=== PATIENT | female | born 1995 | race Caucasian/White ===

== ENCOUNTER → 2023-12-29 | Outpatient (CLI) | payer OTHER | LOC: M RAD 07:25 | PROVIDERS: ATTEND Obstetrics & Gynecology Reproductive Endocrinology | DX: Z34.91 Encounter for supervision of normal pregnancy, unspecified, first trimester (principal); Z31.7 Encounter for procreative management and counseling for gestational carrier ==

== ENCOUNTER → 2024-01-11 | Outpatient (CLI) | payer OTHER ==
[2024-01-11 15:29] LABS: HEMATOCRIT 39.9 % (36.0-47.0); HEMOGLOBIN 12.9 g/dl (12.0-15.5); MEAN CORPUSCULAR HEMOGLOBIN 26.3 pg (27.0-33.0); MEAN CORPUSCULAR HGB CONC 32.3 g/dl (32.0-36.5); MEAN CORPUSCULAR VOLUME 81.4 fl (80.0-96.0); PLATELET COUNT, AUTOMATED 270 10^3/uL (150-450); WHITE BLOOD COUNT 8.6 10^3/uL (4.0-10.0)
[2024-01-11 16:24] LABS: HIV 1&2 SCREEN NEGATIVE (NEGATIVE)
[2024-01-11 16:32] LABS: HEPATITIS C VIRUS ABY INDEX < 0.02 INDEX (<0.8)
[2024-01-11 16:48] LABS: GC DNA AMPLIFICATION NEGATIVE (NEGATIVE)
== END ==
LOC: M PLALAB 14:21
PROVIDERS: ATTEND Nurse Practitioner Women's Health
DX: Z34.80 Encounter for supervision of other normal pregnancy, unspecified trimester (principal)

== ENCOUNTER → 2024-02-08 | Outpatient (REF) | payer OTHER | LOC: M PLALAB 09:25 | PROVIDERS: ATTEND Obstetrics & Gynecology | DX: R82.90 Unspecified abnormal findings in urine (principal) ==

== ENCOUNTER → 2024-03-07 | Outpatient (REF) | payer OTHER | LOC: M SFHCWAGY 14:58 | PROVIDERS: ATTEND Obstetrics & Gynecology | DX: Z34.82 Encounter for supervision of other normal pregnancy, second trimester (principal) ==

== ENCOUNTER → 2024-04-01 | Outpatient (CLI) | payer OTHER | LOC: M RAD 13:18 | PROVIDERS: ATTEND Obstetrics & Gynecology | DX: Z34.82 Encounter for supervision of other normal pregnancy, second trimester (principal); Z3A.21 21 weeks gestation of pregnancy ==

== ENCOUNTER → 2024-05-03 | Outpatient (CLI) | payer OTHER ==
[2024-05-03 15:26] LABS: HEMATOCRIT 34.5 % (36.0-47.0); HEMOGLOBIN 10.4 g/dl (12.0-15.5); MEAN CORPUSCULAR HEMOGLOBIN 24.7 pg (27.0-33.0); MEAN CORPUSCULAR HGB CONC 30.1 g/dl (32.0-36.5); MEAN CORPUSCULAR VOLUME 81.9 fl (80.0-96.0); PLATELET COUNT, AUTOMATED 270 10^3/uL (150-450); RED BLOOD COUNT 4.21 10^6/uL (4.00-5.40); WHITE BLOOD COUNT 9.4 10^3/uL (4.0-10.0)
[2024-05-03 15:30] LABS: GLUCOSE CHALLENGE TEST 1 HOUR 147 MG/DL (LESS THAN 140)
[2024-05-03 15:57] LABS: HIV 1&2 SCREEN NEGATIVE (NEGATIVE)
[2024-05-03 16:05] LABS: HEPATITIS C VIRUS ABY INDEX 0.02 INDEX (<0.8)
[2024-05-03 19:31] LABS: GC DNA AMPLIFICATION NEGATIVE (NEGATIVE)
== END ==
LOC: M PLALAB 11:23
PROVIDERS: ATTEND Obstetrics & Gynecology
DX: Z34.92 Encounter for supervision of normal pregnancy, unspecified, second trimester (principal)

== ENCOUNTER → 2024-05-26 | Outpatient (CLI) | payer OTHER | LOC: M LAB 07:35 | PROVIDERS: ATTEND Obstetrics & Gynecology | DX: R73.02 Impaired glucose tolerance (oral) (principal) ==

== ENCOUNTER → 2024-06-03 | Outpatient (CLI) | payer OTHER | LOC: M RAD 15:44 | PROVIDERS: ATTEND Obstetrics & Gynecology | DX: Z34.93 Encounter for supervision of normal pregnancy, unspecified, third trimester (principal); Z3A.30 30 weeks gestation of pregnancy ==

== ENCOUNTER → 2024-06-17 | Outpatient (CLI) | payer OTHER ==
[~2024-06-17] MED LIST: PRENTAB9 PO
[2024-06-17 13:51] LABS: HEMATOCRIT 32.6 % (36.0-47.0); HEMOGLOBIN 9.9 g/dl (12.0-15.5); MEAN CORPUSCULAR HEMOGLOBIN 23.8 pg (27.0-33.0); MEAN CORPUSCULAR HGB CONC 30.4 g/dl (32.0-36.5); MEAN CORPUSCULAR VOLUME 78.4 fl (80.0-96.0); PLATELET COUNT, AUTOMATED 248 10^3/uL (150-450); RED BLOOD COUNT 4.16 10^6/uL (4.00-5.40)
== END ==
LOC: M PLALAB 10:05
PROVIDERS: ATTEND Nurse Practitioner Family
DX: O99.013 Anemia complicating pregnancy, third trimester (principal); Z3A.00 Weeks of gestation of pregnancy not specified

== ENCOUNTER → 2024-07-06 | Outpatient (REF) | payer OTHER ==
[2024-07-06 18:47] LABS: TOTAL PROTEIN,RANDOM URINE 17.3 MG/DL (0.0-14.0)
[2024-07-06 18:52] LABS: CREATININE,RANDOM URINE 43.8 MG/DL
== END ==
LOC: M PLALAB 13:57
PROVIDERS: ATTEND Obstetrics & Gynecology
DX: H43.393 Other vitreous opacities, bilateral (principal); Z3A.35 35 weeks gestation of pregnancy; R82.90 Unspecified abnormal findings in urine; Z36.85 Encounter for antenatal screening for Streptococcus B

== ENCOUNTER 2024-07-07 13:03 | Outpatient (CLI) | payer OTHER ==
[~2024-07-07] VITALS: Ht 160 cm; Wt 80.0 kg
[~2024-07-07 13:03] MED LIST changes: +ALBUTEROL SULFATE 2.5MG/0.5ML INH NEB SOLN INH PRN; +EPINEPHrine INJ 1 MG/ML 1ML AMP IM PRN; -PRENTAB9 PO; +diphenhydrAMINE 50MG/ML VIAL IV PRN; +methylPREDNISolone 125MG 2ML VIAL IV PRN
[2024-07-07] MEDS: IRON SUCROSE 200 MG IVP IV ONE (13:27)
[2024-07-07] MEDS ORDERED: diphenhydrAMINE 25MG CAP PO ONE (13:30)
[2024-07-07] MEDS ORDERED: ACETAMINOPHEN 650 MG PO ONE (13:30)
== END 2024-07-07 14:20 ==
LOC: M INFU 13:03
PROVIDERS: ATTEND Nurse Practitioner Family
DX: D64.9 Anemia, unspecified (principal)
CPT/HCPCS: 96374; J1756

== ENCOUNTER → 2024-07-15 | Outpatient (CLI) | payer OTHER ==
[2024-07-15 13:38] LABS: URIC ACID 4.7 MG/DL (3.1-7.8)
[2024-07-15 13:40] LABS: LDH LACTATE DEHYDROGENASE 163 U/L (120-246)
[2024-07-15 13:41] LABS: ALT/SGPT 13 U/L (7.0-40); AST/SGOT 13 U/L (<34); BILIRUBIN,TOTAL 0.5 MG/DL (0.3-1.2); CREATININE FOR GFR 0.72 MG/DL (0.55-1.30); GLOMERULAR FILTRATION RATE > 60.0 (>60)
[2024-07-15 13:45] LABS: HEMATOCRIT 35.1 % (36.0-47.0); HEMOGLOBIN 10.5 g/dl (12.0-15.5); MEAN CORPUSCULAR HGB CONC 29.9 g/dl (32.0-36.5); MEAN CORPUSCULAR VOLUME 76.8 fl (80.0-96.0); PLATELET COUNT, AUTOMATED 234 10^3/uL (150-450); RED BLOOD COUNT 4.57 10^6/uL (4.00-5.40); WHITE BLOOD COUNT 9.3 10^3/uL (4.0-10.0)
== END ==
LOC: M PLALAB 10:18
PROVIDERS: ATTEND Obstetrics & Gynecology
DX: H43.393 Other vitreous opacities, bilateral (principal)

== ENCOUNTER 2024-07-25 14:00 | Outpatient (CLI) | payer OTHER ==
[2024-07-14] MEDS: ACETAMINOPHEN 650 MG PO ONE (13:00)
[2024-07-14] MEDS: diphenhydrAMINE 25MG CAP PO ONE (13:00)
[~2024-07-25] VITALS: Ht 160 cm; Wt 79.5 kg
[~2024-07-25 14:00] MED LIST changes: +IRON SUCROSE 200 MG IVP IV ONE
[2024-07-25] MEDS: IRON SUCROSE 200 MG IVP IV ONE (14:11)
[2024-07-25] MEDS ORDERED: diphenhydrAMINE 25MG CAP PO ONE (14:30)
[2024-07-25] MEDS ORDERED: ACETAMINOPHEN 650 MG PO ONE (14:30)
[2024-07-25 14:50] VITALS: BP 126/69; O2SAT 97
[2024-07-30] MEDS ORDERED: PRENTAB9 PO (07:48)
== END 2024-07-25 14:55 ==
LOC: M INFU 14:00
PROVIDERS: ATTEND Nurse Practitioner Family
DX: D64.9 Anemia, unspecified (principal)
CPT/HCPCS: 96374; J1756

== ENCOUNTER 2024-07-30 07:20 | Inpatient (IN) | payer OTHER ==
[2024-07-30] VITALS (24 sets, daily range): BP systolic 105–133; BP diastolic 57–84; O2SAT 98
[~2024-07-30] VITALS: Ht 160 cm; Wt 80.1 kg
[2024-07-30] MEDS ORDERED: PRENTAB9 PO ×2 (07:48)
[2024-07-30] MEDS ORDERED: HOME MED LIST COMPLETE! XX SCH (07:50)
[2024-07-30] MEDS ORDERED: CARBOPROST TROMETHAMINE 250 MCG/ML AMP IM PRN (08:15)
[2024-07-30] MEDS ORDERED: OXYTOCIN INJ 10UNITS/ML 1ML VIAL IM PRN (08:15)
[2024-07-30] MEDS ORDERED: METHYLERGONOVINE MALEATE 0.2MG/ML 1ML VIAL IM PRN (08:15)
[2024-07-30] MEDS ORDERED: LIDOCAINE 1% MDV 20ML VIAL INFIL PRN (08:15)
[2024-07-30] MEDS ORDERED: OXYTOCIN DRIP 30 UNITS in IV 1 EA IV PRN ×3 (08:15)
[2024-07-30] MEDS ORDERED: OXYTOCIN INJ 10UNITS/ML 1ML VIAL IV PRN (08:15)
[2024-07-30] MEDS: LR 1,000 ML IV SCH ×2 (08:15→09:27)
[2024-07-30] MEDS ORDERED: miSOPROStol 50MCG 1/2 TABLET PO PRN (08:15)
[2024-07-30] MEDS ORDERED: TRANEXAMIC ACID INJection 1,000 MG in NS 100 ML IV PRN (08:15)
[2024-07-30] MEDS: PENICILLIN G POTASSIUM 5 MU IV 5 MU in DEXTROSE 5% (D5W) MINI-BAG PLU 100 ML IV STA (09:28)
[2024-07-30] MEDS: OXYTOCIN DRIP 30 UNITS in IV 1 EA IV SCH (09:28)
[2024-07-30 10:16] LABS: HEMATOCRIT 36.9 % (36.0-47.0); HEMOGLOBIN 11.2 g/dl (12.0-15.5); MEAN CORPUSCULAR HGB CONC 30.4 g/dl (32.0-36.5); MEAN CORPUSCULAR VOLUME 75.9 fl (80.0-96.0); PLATELET COUNT, AUTOMATED 244 10^3/uL (150-450); RED BLOOD COUNT 4.86 10^6/uL (4.00-5.40); WHITE BLOOD COUNT 8.6 10^3/uL (4.0-10.0)
[2024-07-30 11:14] LABS: HIV 1&2 SCREEN NEGATIVE (NEGATIVE)
[2024-07-30 11:22] LABS: HEPATITIS C VIRUS ABY INDEX 0.05 INDEX (<0.8)
[2024-07-30] MEDS: LACTATED RINGER'S 1000 ML IV STA (11:45)
[2024-07-30] MEDS ORDERED: EPIDURAL/PCA KEYS XX PRN (13:05)
[2024-07-30] MEDS ORDERED: ONDANSETRON 4MG 2ML VIAL IV PRN (13:05)
[2024-07-30] MEDS ORDERED: ePHEDrine SULFATE 25 MG/5 ML(5MG/ML) SYRINGE IVP PRN (13:05)
[2024-07-30] MEDS ORDERED: LR 500 ML IV PRN (13:05)
[2024-07-30] MEDS ORDERED: diphenhydrAMINE 50MG/ML VIAL IV PRN (13:05)
[2024-07-30] MEDS ORDERED: NALOXONE INJ 0.4MG/1ML VIAL IV PRN (13:05)
[2024-07-30] MEDS: FENTANYL/ROPIVACAINE/NACL BAG 100 ML EPIDURAL SCH (13:38)
[2024-07-30] MEDS: PEN G POT 3,000,000 UNIT/50 ML 3,000,000 UNIT in IV 1 EA IV SCH (14:03)
[2024-07-30] MEDS ORDERED: RHOGAM 300MCG (1500IU) INJ IM SCH (18:40)
[2024-07-30] MEDS ORDERED: DOCUSATE SODIUM 100MG CAPSULE PO PRN (18:40)
[2024-07-30] MEDS ORDERED: DIBUCAINE 1% OINTMENT 30GM TOP PRN (18:40)
[2024-07-30] MEDS ORDERED: ACETAMINOPHEN 500 MG TAB PO PRN (18:40)
[2024-07-30 18:50] LABS: CORD GAS ABE A -2.5; CORD GAS O2 SAT A 41.8 %; CORD GAS PCO2 A 42.1 mmHg; CORD GAS PH A 7.355 UNITS; CORD GAS PO2 A 18.2 mmHg; CORD GAS SBC A 21.1 MMOL/L; CORD GAS TCO2 A 24.3 MMOL/L
[2024-07-30 18:53] LABS: CORD GAS ABE V -2.6; CORD GAS HCO3 V 20.6 MMOL/L; CORD GAS O2 SAT V 78.4 %; CORD GAS PCO2 V 31.8 mmHg; CORD GAS PH V 7.43 UNITS; CORD GAS PO2 V 31.5 mmHg; CORD GAS SBC V 21.9 MMOL/L; CORD GAS TCO2 V 21.6 MMOL/L
[2024-07-30] MEDS: IBUPROFEN 800 MG TAB PO PRN (21:34)
[2024-07-31 06:00] VITALS: BP 110/62; O2SAT 100
[2024-07-31] MEDS ORDERED: PRENATAL VITAMINS CHEWABLE TABLET PO SCH (09:00)
[2024-07-31] MEDS: PRENATAL VITAMINS CHEWABLE TABLET PO SCH (09:00)
[2024-08-01] MEDS ORDERED: MEASLES,MUMPS,RUBELLA VACCINE INJ (MMR-II) SC.IMMUN ONE (09:00)
== END 2024-07-31 12:30 | disposition home or self-care (01) | DRG 560 ==
LOC: M LDI 07:20 → M OBS 20:25
PROVIDERS: ADMIT Obstetrics & Gynecology; ATTEND Obstetrics & Gynecology
PROC: 10E0XZZ Delivery of Products of Conception, External Approach (ICD-10-PCS; principal; 2024-07-30)
PROC: 10907ZC Drainage of Amniotic Fluid, Therapeutic from Products of Conception, Via Natural or Artificial Opening (ICD-10-PCS; 2024-07-30)
PROC: 3E033VJ Introduction of Other Hormone into Peripheral Vein, Percutaneous Approach (ICD-10-PCS; 2024-07-30)
DX: O99.02 Anemia complicating childbirth (principal); D50.9 Iron deficiency anemia, unspecified; O99.824 Streptococcus B carrier state complicating childbirth; Z3A.39 39 weeks gestation of pregnancy; Z37.0 Single live birth

== ENCOUNTER 2024-10-12 08:55 | Emergency (ER) | payer OTHER ==
[~2024-10-12] VITALS: Ht 160 cm; Wt 57.3 kg
[~2024-10-12 08:55] MED LIST changes: -ALBUTEROL SULFATE 2.5MG/0.5ML INH NEB SOLN INH PRN; -EPINEPHrine INJ 1 MG/ML 1ML AMP IM PRN; -IRON SUCROSE 200 MG IVP IV ONE; +PRENTAB9 PO; -diphenhydrAMINE 50MG/ML VIAL IV PRN; -methylPREDNISolone 125MG 2ML VIAL IV PRN
[2024-10-12 10:26] LABS: BASO # 0.1 10^3/uL (0.0-0.2); BASO % 0.6 % (0.0-1.0); EOS # 0.1 10^3/uL (0.0-0.5); EOS % 0.6 % (0.0-3.0); HEMATOCRIT 42.3 % (36.0-47.0); HEMOGLOBIN 13.4 g/dl (12.0-15.5); LYMPH # 1.5 10^3/uL (1.5-5.0); LYMPH % 16.9 % (24.0-44.0); MEAN CORPUSCULAR HEMOGLOBIN 25.9 pg (27.0-33.0); MEAN CORPUSCULAR HGB CONC 31.7 g/dl (32.0-36.5); MEAN CORPUSCULAR VOLUME 81.8 fl (80.0-96.0); MONO # 0.7 10^3/uL (0.0-0.8); MONO % 8.5 % (2.0-8.0); NEUTROPHILS # 6.3 10^3/uL (1.5-8.5); NEUTROPHILS % 73.2 % (36.0-66.0); PLATELET COUNT, AUTOMATED 222 10^3/uL (150-450); RED BLOOD COUNT 5.17 10^6/uL (4.00-5.40); WHITE BLOOD COUNT 8.6 10^3/uL (4.0-10.0)
[2024-10-12 11:04] LABS: LIPASE 36 U/L (12-53)
[2024-10-12 11:06] LABS: ALBUMIN 4.1 G/DL (3.2-5.2); ALKALINE PHOSPHATASE 61 U/L (35-104); ALT/SGPT 20 U/L (7.0-40); AST/SGOT 12 U/L (<34); BILIRUBIN,DIRECT 0.2 MG/DL (<0.4); BILIRUBIN,TOTAL 0.7 MG/DL (0.3-1.2); BLOOD UREA NITROGEN 9 MG/DL (9-23); CALCIUM LEVEL 9.1 MG/DL (8.5-10.1); CARBON DIOXIDE LEVEL 22 MMOL/L (20-31); CHLORIDE LEVEL 108 MMOL/L (98-107); CREATININE FOR GFR 0.77 MG/DL (0.55-1.30); GLOMERULAR FILTRATION RATE > 90.0 (>60); GLUCOSE, FASTING 94 MG/DL (60-100); POTASSIUM SERUM 3.9 MMOL/L (3.5-5.1); SODIUM LEVEL 139 MMOL/L (136-145); TOTAL PROTEIN 7.3 G/DL (5.7-8.2)
[2024-10-12] MEDS: ACETAMINOPHEN 500 MG TAB PO ONE (11:22)
[2024-10-12] MEDS ORDERED: ONDA-282 PO (13:26)
[2024-10-12 13:33] VITALS: BP 103/71; TEMP 98; O2SAT 98
== END 2024-10-12 13:35 | disposition home or self-care (01) ==
LOC: M ED 08:55
DX: K81.0 Acute cholecystitis (principal); F17.290 Nicotine dependence, other tobacco product, uncomplicated